=== PATIENT | female | born 1960 | race Caucasian/White ===

== ENCOUNTER 2020-09-05 06:35 | Day surgery (SDC) | payer OTHER ==
[2020-07-03 10:45] VITALS: BMI 32.8
[2020-09-05] MEDS ORDERED: AFRIN NASAL MIST 15 ML BOT ONE ×2 (07:34→07:59)
[2020-09-05] MEDS ORDERED: Lidocaine 1% w/Epinephrine 1:100K 20 ML VIAL ONE (07:59)
[2020-09-05] MEDS ORDERED: Bacitracin Zinc Ointment 30 gm TUBE ONE (07:59)
[2020-09-05] MEDS ORDERED: Fentanyl 100 MCG/2 ML VIAL ONE ×2 (08:28→10:18)
[2020-09-05] MEDS ORDERED: ePHEDrine Sulfate 50 MG/10 ML VIAL ONE (09:03)
[2020-09-05] MEDS ORDERED: Lidocaine 1% PF 5 ML VIAL ONE (09:03)
[2020-09-05] MEDS ORDERED: PROPOFOL 200 MG/20 ML VIAL ONE (09:03)
[2020-09-05] MEDS ORDERED: Ondansetron PF 4 MG/2 ML Vial ONE (09:03)
[2020-09-05] MEDS ORDERED: Dexamethasone 20 MG/5 ML VIAL ONE (09:03)
[2020-09-05] MEDS ORDERED: Succinylcholine 200 MG/10 ml SYRINGE FS ONE (09:03)
[2020-09-05] MEDS ORDERED: hydrALAZINE 20 MG/ML VIAL ONE (10:17)
[2020-09-05] MEDS ORDERED: Promethazine HCl 25 MG/ML VIAL ONE (12:10)
[2020-09-05] MEDS ORDERED: HYDROcodone/Acetaminophen 5/325 mg Tablet ONE (13:09)
== END 2020-09-05 13:35 | disposition home or self-care (01) ==
LOC: SDC 06:35
PROVIDERS: ATTEND Otolaryngology Plastic Surgery within the Head & Neck
PROC: 09QK0ZZ Repair Nasal Mucosa and Soft Tissue, Open Approach (ICD-10-PCS; principal; 2020-09-05)
PROC: 09SM0ZZ Reposition Nasal Septum, Open Approach (ICD-10-PCS; principal; 2020-09-05)
PROC: 09TL0ZZ Resection of Nasal Turbinate, Open Approach (ICD-10-PCS; principal; 2020-09-05)
DX: J34.2 Deviated nasal septum (principal); J34.3 Hypertrophy of nasal turbinates; J34.89 Other specified disorders of nose and nasal sinuses; J32.4 Chronic pansinusitis; I10 Essential (primary) hypertension; J45.909 Unspecified asthma, uncomplicated; G43.909 Migraine, unspecified, not intractable, without status migrainosus; E66.9 Obesity, unspecified; Z68.32 Body mass index [BMI] 32.0-32.9, adult
CPT/HCPCS: 36415; 85014; 93005; 93010; C1889; J0360; J1100; J2405; J2550; J2704; J3010